=== PATIENT | female | born 1935 | race Caucasian/White ===

== ENCOUNTER 2018-05-18 09:38 | Day surgery (SDC) | payer MEDICARE ==
[~2018-05-18] VITALS: Ht 160 cm; Wt 60.3 kg
[~2018-05-18 09:38] MED LIST: BUPIVACAINE/PF 0.25% ONE
[2018-05-18] MEDS ORDERED: LACTATED RINGERS 1,000 ML IV SCH (10:25)
[2018-05-18] MEDS ORDERED: GLIM2TAB2 PO (10:29)
[2018-05-18] MEDS ORDERED: SIMV20TA3 PO (10:29)
[2018-05-18] MEDS ORDERED: LORA1TAB PO (10:29)
[2018-05-18] MEDS ORDERED: DULO30CA2 PO (10:29)
[2018-05-18] MEDS ORDERED: OMEG-157 PO (10:29)
[2018-05-18] MEDS ORDERED: MULT-6 PO (10:29)
[2018-05-18] MEDS ORDERED: METO25TA35 PO (10:29)
[2018-05-18] MEDS ORDERED: LISI40TA PO (10:29)
[2018-05-18] MEDS ORDERED: POTA10TA6 PO (10:29)
[2018-05-18] MEDS ORDERED: LEVO50TA PO (10:29)
[2018-05-18 11:13] VITALS: BP 150/88
[2018-05-18 11:14] LABS: BASOPHILS # (AUTO) 0.03 x10^3/uL (0-0.1); BASOPHILS % (AUTO) 1 % (0-1); EOSINOPHILS # (AUTO) 0.04 x10^3/uL (0-0.4); EOSINOPHILS % (AUTO) 1 % (1-7); LYMPHOCYTES # (AUTO) 2.65 x10^3/uL (1-3.4); LYMPHOCYTES % (AUTO) 36 % (22-44); MD NO; MEAN CORPUSCULAR HEMOGLOBIN 31.3 pg (27.0-34.8); MEAN CORPUSCULAR HGB CONC 34.5 g/dL (32.4-35.8); MEAN CORPUSCULAR VOLUME 90.6 fL (80-100); MEAN PLATELET VOLUME 9.1 fL (7.4-10.4); MONOCYTES # (AUTO) 0.57 x10^3/uL (0.2-0.8); MONOCYTES % (AUTO) 8 % (2-9); NEUTROPHILS # (AUTO) 4.14 x10^3/uL (1.8-6.8); NEUTROPHILS % (AUTO) 56 % (42-75); PLATELET COUNT 379 x10^3/uL (130-400); RED BLOOD COUNT 4.16 x10^6/uL (3.82-5.3); RED CELL DISTRIBUTION WIDTH 13.6 % (9.6-15.2)
[2018-05-18 11:23] LABS: ALANINE AMINOTRANSFERASE 22 U/L (12-78); ALBUMIN 3.8 g/dL (3.4-5.0); ANION GAP 10 mmol/L (5-15); CALCIUM 10.1 mg/dL (8.5-10.1); CHLORIDE 107 mmol/L (98-107); CREATININE 1.04 mg/dL (0.55-1.02); INTERNATIONAL NORMALIZED RATIO 1.08 (0.93-1.1); PROTHROMBIN TIME 11.4 Seconds (9.6-11.5)
[2018-05-18 11:25] LABS: ALKALINE PHOSPHATASE 81 U/L (45-117); BILIRUBIN,TOTAL 0.7 mg/dL (0.2-1.0); TOTAL PROTEIN 8.5 g/dL (6.4-8.2)
[2018-05-18] MEDS ORDERED: ACETAMINOPHEN 500 MG TABLET PO ONE (12:00)
[2018-05-18] MEDS ORDERED: SCOPOLAMINE PATCH, 1.5MG PATCH.TD72 TD ONE (12:00)
[2018-05-18] MEDS ORDERED: GABAPENTIN 300 MG CAPSULE PO ONE (12:00)
[2018-05-18] MEDS ORDERED: MIDAZOLAM 1 MG/ML, 2ML ONE (13:11)
[2018-05-18] MEDS ORDERED: FENTANYL PF 250 MCG/5ML ONE (13:12)
[2018-05-18] MEDS ORDERED: INDOCYANINE GREEN 25 MG VIAL ONE (14:00)
[2018-05-18] MEDS ORDERED: PROPOFOL 10 MG/ML, 20ML ONE (14:04)
[2018-05-18] MEDS ORDERED: ONDANSETRON 2MG/ML, 2ML ONE ×2 (14:04→17:10)
[2018-05-18] MEDS ORDERED: ROCURONIUM 10MG/ML,5ML ONE (14:04)
[2018-05-18] MEDS ORDERED: DEXAMETHASONE 4 MG/ML, 1ML ONE (14:04)
[2018-05-18] MEDS ORDERED: GLYCOPYRROLATE 0.2MG/1ML, 5ML ONE (14:04)
[2018-05-18] MEDS ORDERED: CEFAZOLIN 1,000 MG ONE (14:04)
[2018-05-18] MEDS ORDERED: SUCCINYLCHOLINE 20 MG/ML, 10ML ONE (14:04)
[2018-05-18] MEDS ORDERED: PROMETHAZINE 12.5 MG SUPP PR PRN (15:00)
[2018-05-18] MEDS ORDERED: hydrALAzine 20 MG/ML, 1ML IV PRN (15:00)
[2018-05-18] MEDS ORDERED: OXYcodone 5 MG/5 ML ORAL.SOL UDC PO PRN (15:00)
[2018-05-18] MEDS ORDERED: ONDANSETRON ODT 8 MG PO PRN (15:00)
[2018-05-18] MEDS ORDERED: LABETALOL 5MG/ML, 20ML IV PRN (15:00)
[2018-05-18] MEDS ORDERED: ONDANSETRON 2MG/ML, 2ML IV PRN (15:00)
[2018-05-18] MEDS ORDERED: MORPHINE SULFATE 4 MG/ML, 1ML IVPush PRN (16:30)
[2018-05-18] MEDS ORDERED: OXYcodone/APAP 7.5/325MG TABLET PO PRN (16:30)
[2018-05-18] MEDS ORDERED: KETOROLAC 30 MG/1 ML IVPush PRN (16:30)
[2018-05-18] MEDS ORDERED: DIAZEPAM 5 MG/ML, 10ML VIAL IV ONE (16:30)
[2018-05-18] MEDS ORDERED: ONDANSETRON 2MG/ML, 2ML IVPush PRN (16:30)
[2018-05-18] MEDS ORDERED: HYDROmorphone 2 MG/ML, 1ML ONE (16:33)
[2018-05-18] MEDS ORDERED: LABETALOL 20 MG/4 ML ONE (16:33)
[2018-05-18] MEDS: HYDROmorphone 1 MG/ML, 1ML IV PRN ×3 (16:46→17:19)
[2018-05-18] MEDS ORDERED: FENTANYL PF 100 MCG/2ML ONE (17:07)
[2018-05-18] MEDS: FENTANYL PF 100 MCG/2ML IV PRN ×2 (17:08→17:19)
[2018-05-18] MEDS ORDERED: MEPERIDINE/PF 50 MG/ML ONE (17:43)
[2018-05-18] MEDS ORDERED: MEPERIDINE/PF 25MG/0.5ML IVPush PRN (18:00)
[2018-05-18] MEDS ORDERED: METOPROLOL TARTRATE 25 MG TABLET PO SCH (18:26)
[2018-05-18] MEDS ORDERED: ONDANSETRON ODT 4 MG PO PRN (18:30)
[2018-05-18] MEDS ORDERED: OXYcodone/APAP 5/325MG TABLET PO PRN (18:30)
[2018-05-18] MEDS ORDERED: SIMVASTATIN 20 MG TABLET PO SCH (21:00)
[2018-05-19] MEDS ORDERED: LEVOTHYROXINE 50 MCG TABLET PO SCH (06:00)
[2018-05-19] MEDS ORDERED: GLIMEPIRIDE 1 MG TABLET PO SCH (08:00)
[2018-05-19] MEDS ORDERED: OMEGA-3/FISH OIL CAPSULE PO SCH (09:00)
[2018-05-19] MEDS ORDERED: LISINOPRIL 20 MG TABLET PO SCH (09:00)
[2018-05-19] MEDS ORDERED: MULTIVITAMIN 1 TABLET PO SCH (09:00)
[2018-05-19] MEDS ORDERED: DULOXETINE 30 MG CAPSULE.DR PO SCH (09:00)
[2018-05-19] MEDS ORDERED: LORazepam 1MG TABLET PO SCH (09:00)
[2018-05-19] MEDS ORDERED: POTASSIUM CHLORIDE 10 MEQ TABLET.ER PO SCH (09:00)
== END 2018-05-18 20:40 | disposition home or self-care (01) ==
LOC: OUT 09:38 → 4NOR 18:12 → OUT 20:40
PROVIDERS: ATTEND Specialist
DX: C54.1 Malignant neoplasm of endometrium (principal); R59.1 Generalized enlarged lymph nodes; E03.9 Hypothyroidism, unspecified; F41.9 Anxiety disorder, unspecified; I10 Essential (primary) hypertension; K44.9 Diaphragmatic hernia without obstruction or gangrene; G89.29 Other chronic pain; Z98.890 Other specified postprocedural states; Z79.899 Other long term (current) drug therapy; Z88.6 Allergy status to analgesic agent; Z88.1 Allergy status to other antibiotic agents; Z88.8 Allergy status to other drugs, medicaments and biological substances; Z96.651 Presence of right artificial knee joint; Z79.01 Long term (current) use of anticoagulants
CPT/HCPCS: 36415; 38572; 58571; 71045; 80053; 82962; 85025; 85610; 85730; 86304; 86850; 86900; 88305; 88307; 88331; 93005; J0330; J0690; J1100; J1170; J2175; J2250; J2405; J2704; J3010; J3360; J3490; J7120; G0378